=== PATIENT | male | born 1955 | race Caucasian/White ===

== ENCOUNTER 2022-01-28 08:48 | Outpatient (CLI) | payer OTHER, SELFPAY ==
[2022-01-28 21:03] LABS: Albumin* 4.3 g/dL (3.3-5.0); Chloride* 103 mmol/L (96-114); Sodium* 139 mmol/L (135-149)
[2022-01-28 21:04] LABS: Potassium* 4.3 mmol/L (3.6-5.1)
[2022-01-28 21:06] LABS: Alanine Aminotransferase* 25 U/L (4-50); Alkaline Phosphatase* 66 U/L (40-150); Aspartate Amino Transferase* 24 U/L (12-35); Bilirubin Total* 0.7 mg/dL (0.1-1.5); Blood Urea Nitrogen* 20 mg/dL (7-30); Carbon Dioxide* 29 mmol/L (20-32); Cholesterol* 144 mg/dL (90-199); Creatinine* 0.8 mg/dL (0.5-1.5); Glucose* 105 mg/dL (60-115); Total Protein* 6.6 g/dL (6.0-8.3)
[2022-01-28 21:07] LABS: Calcium* 9.3 mg/dL (8.4-10.6); HDL Cholesterol* 37 mg/dL (>=40); LDL Cholesterol Calculated 86 mg/dL (<100); Triglycerides* 107 mg/dL (40-149)
[2022-01-28 21:39] LABS: PSA Screen* 1.93 ng/mL (0.10-4.00)
== END 2022-01-28 08:49 | disposition home or self-care (01) ==
PROVIDERS: PCP Internal Medicine; Visit Provider Internal Medicine
DX: E78.5 Hyperlipidemia, unspecified; I10 Essential (primary) hypertension; L70.9 Acne, unspecified; Z12.5 Encounter for screening for malignant neoplasm of prostate
CPT/HCPCS: 80053; 80061; 84153

== ENCOUNTER 2022-12-28 09:52 | Outpatient (CLI) | payer OTHER, SELFPAY | END 2022-12-28 09:53 | disposition home or self-care (01) | PROVIDERS: PCP Internal Medicine; Visit Provider Internal Medicine | DX: Z12.5 Encounter for screening for malignant neoplasm of prostate (principal) | CPT/HCPCS: 84153 ==

== ENCOUNTER 2023-05-27 07:40 | Outpatient (CLI) | payer OTHER, SELFPAY | END 2023-05-27 07:41 | disposition home or self-care (01) | LOC: NFLDREF 05-28 11:35 | PROVIDERS: PCP Internal Medicine; Referring Provider Internal Medicine; Visit Provider Internal Medicine | DX: E78.5 Hyperlipidemia, unspecified (principal); I10 Essential (primary) hypertension | CPT/HCPCS: 80053; 80061 ==

== ENCOUNTER 2023-06-14 09:32 | Outpatient (CLI) | payer OTHER, SELFPAY ==
--- NOTE | 2023-06-14 10:57 | W.ANESCHARGE ---
Anesthesia Charges Start Date/Time Anesthesia Start Date: 06/14/23 Anesthesia Start Time: 10:31 Stop Date/Time Anesthesia Stop Date: 06/14/23 Anesthesia Stop Time: 10:53
--- NOTE | 2023-06-14 11:00 | W.ANESCHARGE ---
Anesthesia Charges Start Date/Time Anesthesia Start Date: 06/14/23 Anesthesia Start Time: 10:31 Stop Date/Time Anesthesia Stop Date: 06/14/23 Anesthesia Stop Time: 10:53
== END 2023-06-14 09:33 | disposition home or self-care (01) ==
LOC: OP CLINIC 09:33
PROVIDERS: PCP Internal Medicine; Visit Provider Internal Medicine
DX: Z12.11 Encounter for screening for malignant neoplasm of colon (principal); K57.30 Diverticulosis of large intestine without perforation or abscess without bleeding
CPT/HCPCS: 00811; 00812; 45378

== ENCOUNTER 2023-10-07 10:11 | Emergency (ER) | payer OTHER, SELFPAY ==
[2023-10-07 10:14] VITALS: BP 123/67; PULSE 65; RESP 16; TEMP 37.1; O2SAT 97; BMI 24.7
--- NOTE | 2023-10-07 10:47 | XR_ITS ---
Patient: CONCEPCION RIVAS Facility:?[facility] Patient ID:?[id number] Site Patient ID:?[id number]. Site :?[id number] Study:?XRay-Chest 2 VIEWS-10/07/2023 10:57:23 AM Ordering Physician:ADONIS Final Report: Indication: Cough x6 weeks Comparison: None available. Technique: PA and lateral views of the chest Findings: There is hyperinflation and mild chronic interstitial change without evidence of dense consolidation, effusion or pneumothorax. The cardiomediastinal silhouette is within normal limits. The bony thorax is grossly intact. Impression: Mild chronic interstitial changes without evidence of dense consolidation. Dictated by Judd Domínguez MD @ 10/07/2023 11:34:26 AM Signed by:?Judd Domínguez MD @10/07/2023 11:34:26 AM (Electronic Signature)
--- NOTE | 2023-10-07 11:09 | ED_ITS ---
HPI - General Adult General Date Seen: 10/07/23 Chief complaint: Cough Stated complaint: Upper chest congestion, cough Time Seen by Provider: 10/07/23 10:32 Source: patient and RN notes reviewed Mode of arrival: ambulatory Limitations: no limitations History of Present Illness HPI narrative: Patient is a 67-year-old male who presents for evaluation of cough which has been present for about 6 weeks. He says the cough kind of gradually crept up on him, was not associated with any other cold or flu symptoms. He has not had a fever, denies night sweats, unexpected weight loss, chest pain, difficulty breathing. He says the cough is worse at night when his upper chest feels very congested and he feels like he can not get the coughing under control. He denies seasonal allergies. He does not smoke, is retired, no specific exposure to any respiratory irritants. No history of asthma or COPD. No lower extremity swelling or pain. Related Data Home Medications Medication Instructions Recorded Confirmed aspirin 81 mg chewable tablet 1 tab PO DAILY 01/28/22 06/01/23 coenzyme Q10 75 mg capsule (Ultra 75 mg PO QDAY 01/28/22 06/01/23 CoQ10) losartan 25 mg tablet 25 mg PO BID 01/28/22 06/01/23 sjdkypdwuvqy-bvt-bqiol acid-vit 1 tab PO QDAY 01/28/22 06/01/23 K-lycop 400 mcg-20 mcg-370 mcg tablet (Men's 50 Plus Daily Formula) omega-3 fatty acids 1,000 mg 1,000 mg PO QDAY 01/28/22 06/01/23 capsule ([place]-3) vitamin K2 100 mcg capsule 100 mcg PO QDAY 01/28/22 06/01/23 Previous Rx's Medication Instructions Recorded minocycline 100 mg capsule 100 mg PO Q12H #30 caps 01/28/22 sildenafil 50 mg tablet (Viagra) 50 mg PO QDAY PRN sexual activity 05/13/22 #9 tabs peg 3350-electrolytes 236 240 ml PO ONCE #4,000 mL 06/02/23 gram-22.74 gram-6.74 gram-5.86 gram solution (Golytely) simvastatin 40 mg tablet 40 mg PO QDAY #90 tabs 08/06/23 Allergies Allergy/AdvReac Type Severity Reaction Status Date / Time No Known Drug Allergies Allergy Verified 06/01/23 08:58 Review of Systems Status of ROS: Reports: 10 or more systems reviewed and unremarkable except as noted in History and below PFSH PFS Medical History Healthcare maintenance ?Z00.00 - Encounter for general adult medical examination without abnormal findings (ICD-10) Erectile dysfunction ?N52.9 - Male erectile dysfunction, unspecified (ICD-10) Acne ?L70.9 - Acne, unspecified (ICD-10) History of coronary artery disease ?Z86.79 - Personal history of other diseases of the circulatory system (ICD- 10) Surgical History History of sinus surgery ?Z98.890 - Other specified postprocedural states (ICD-10) History of open reduction and internal fixation (ORIF) procedure ?Z98.890 - Other specified postprocedural states (ICD-10) History of hand surgery ?Z98.890 - Other specified postprocedural states (ICD-10) Family History Father Coronary artery disease Mother Coronary artery disease Brother Coronary artery disease Social History What is your current living situation?: I presently have a place to live Problems where you live: no known problems In the past 12 months, utilities in danger of being shut off: no In past 12 months, lack of transportation kept you from medical appts, meetings, work, or getting things needed for daily living: no In the past 12 mos, have been you worried that your food would run out before you had money to buy more?: never true In the past 12 mos, the food you bought just didn't last and you didn't have money to buy more?: never true Smoking Status: Former smoker How often do you have a drink containing alcohol: never AUDIT-C Alcohol total score: 0 Non-prescribed substance use: denies use How often does anyone, including family, friends and others, physically hurt you : never How often does anyone, including family, friends and others, insult or talk down to you: never How often does anyone, including family, friends and others, threaten you with harm: never How often does anyone, including family, friends and others, scream or curse at you: never Little interest or pleasure in doing things: not at all Feeling down, depressed, or hopeless: not at all Exam Narrative: Exam Narrative: Vital signs as noted above. In general, an alert, well-appearing patient. Breathing easily. Head: Normocephalic, atraumatic. Eyes: Pupils are equal reactive. Extraocular movements are full. Conjunctivae are normal. ENT: Mucous membranes are moist. Throat is normal. Neck: Supple without lymphadenopathy. Heart: Regular rate and rhythm. No murmur or rub. Lungs: Lungs are clear, no increased work of breathing. Cough does sound somewhat bronchospastic. Abdomen: Soft and nontender. No organomegaly. Extremities: Well perfused. No edema. No calf tenderness. Pulses intact. Neurologic: Patient is alert and oriented to person and place. Speech is fluent. Face is symmetric. Moves all extremities equally. Affect: Normal. Skin: Warm and dry. Well perfused. Const: Vital Signs, click to edit/add: Vital Signs - 24 hr 10/07/23 10:14 Temperature 98.8 F Pulse Rate [Pulse Oximeter] 65 Respiratory Rate 16 Blood Pressure [Ri ght Upper Arm] 123/67 Pulse Oximetry 97 Oxygen Delivery Me thod Room Air Documenting provider has reviewed patient's vital signs: yes Course Course ED Course: I did elect to do a chest x-ray given duration of symptoms, to rule out unlikely findings such as pulmonary edema, pleural effusion, mass. By my review the chest x-ray is negative, final radiology read is still pending. Lungs are clear, O2 sats are normal. He says in the past when he has had symptoms like this he has responded well to azithromycin. Discussed the diagnosis of bronchitis and that this is typically viral. Would recommend starting with a trial of prednisone and albuterol. I am giving him a prescription for azithromycin but recommend that he hold off on starting that unless he does not have any response to the above medications. If he does not feel better in the next week regardless of treatment, he should be seen again by primary care. Return any time for acute worsening new symptoms such as shortness of breath, fevers, chest pain. At this time I do not have suspicion of a cardiovascular cause for his symptoms. Vital Signs Vital signs: Initial Vital Signs Temperature 98.8 F 10/07/23 10:14 Temperature Source Temporal Artery Scan 10/07/23 10:14 Pulse Rate 65 10/07/23 10:14 Respiratory Rate 16 10/07/23 10:14 Blood Pressure 123/67 10/07/23 10:14 Blood Pressure Mean 85 10/07/23 10:14 Blood Pressure Position Supine 10/07/23 10:14 Pulse Oximetry 97 10/07/23 10:14 Oxygen Delivery Method Room Air 10/07/23 10:14 Vital Signs Temperature 98.8 F 10/07/23 10:14 Pulse Rate 65 10/07/23 10:14 Respiratory Rate 16 10/07/23 10:14 Blood Pressure 123/67 10/07/23 10:14 Pulse Oximetry 97 10/07/23 10:14 Oxygen Delivery Method Room Air 10/07/23 10:14 Temperature 98.8 F 10/07/23 10:14 Pulse Rate 65 10/07/23 10:14 Respiratory Rate 16 10/07/23 10:14 Blood Pressure 123/67 10/07/23 10:14 Pulse Oximetry 97 10/07/23 10:14 Oxygen Delivery Method Room Air 10/07/23 10:14 Discharge Plan Discharge Clinical Impression: Bronchitis Patient Disposition: Home, Self-Care Condition: Stable Instructions: Acute Bronchitis (ED) Additional Instructions: Medications as prescribed. I would start with the inhaler and steroids 1st, antibiotics are typically not needed for bronchitis as it is caused by viruses, but if you are not improving despite several days of treatment with steroid and inhaler, you can take the azithromycin as prescribed as well. See your primary doctor if symptoms do not resolve over the next week, return to the ER at any time for worsening. Prescriptions: No Action aspirin 81 mg tablet,chewable 1 tab PO DAILY losartan 25 mg tablet 25 mg PO BID Men's 50 Plus Daily Formula 400-20-370 mcg tablet 1 tab PO QDAY Ultra CoQ10 75 mg capsule 75 mg PO QDAY omega-3 fatty acids [[place]-3] 1,000 mg capsule 1,000 mg PO QDAY vitamin K2 100 mcg capsule 100 mcg PO QDAY minocycline 100 mg capsule 100 mg PO Q12H Qty: 30 3RF sildenafil [Viagra] 50 mg tablet 50 mg PO QDAY PRN (Reason: sexual activity) Qty: 9 12RF Rx Instructions: administer 30 minutes to 4 hours before activity peg 3350-electrolytes [Golytely] 236-22.74-6.74 -5.86 gram recon soln 240 ml PO ONCE Qty: 4000 0RF Rx Instructions: until fecal effluent is clear simvastatin 40 mg tablet 40 mg PO QDAY Qty: 90 2RF Follow Up/Referrals: Zion Rubalcava MD [Primary Care Provider] - Stand Alone Forms: [facility] Info Instructions
[2023-10-07 11:11] VITALS: BP 123/67; PULSE 65; RESP 16; TEMP 37.1
== END 2023-10-07 11:13 | disposition home or self-care (01) ==
PROVIDERS: Emergency Provider Emergency Medicine; PCP Internal Medicine
DX: J40 Bronchitis, not specified as acute or chronic (principal)
CPT/HCPCS: 71046; 99283; 99284

== ENCOUNTER 2024-05-22 10:35 | Emergency (ER) | payer OTHER, SELFPAY ==
[2024-05-22 10:57] VITALS: BP 115/70; PULSE 54; RESP 16; TEMP 36.7; O2SAT 96; BMI 24.4
--- NOTE | 2024-05-22 11:48 | CRLHL7_ITS ---
For Patients: As a result of the Century Cures Act, medical imaging exams and procedure reports are released immediately into your electronic medical record. You may view this report before your referring provider. If you have questions, please contact your health care provider. INDICATION: Coughing and congestion. TECHNIQUE: CT chest without contrast. COMPARISON: None. FINDINGS: Lungs and pleura: No suspicious nodules or infiltrates. No pleural effusions, pleural thickening, or pneumothorax. Heart and vasculature: Heart size is normal. Coronary artery calcifications. Mild ectatic ascending aorta measuring 4.0 centimeters. Lymph nodes/mediastinum: Small hiatal hernia. No mediastinal, hilar, or axillary adenopathy. Chest wall: No masses. Upper abdomen: No significant findings. Bones: Unremarkable for age. IMPRESSION: No acute intrathoracic abnormality including pneumonia as questioned. Coronary artery calcifications. Please note that all CT scans at this facility use dose modulation, iterative reconstruction, and/or weight-based dosing when appropriate to reduce radiation dose to as low as reasonably achievable. Dictated by Tien Sher MD @ 05/22/2024 12:24:54 PM (Electronically Signed)
--- NOTE | 2024-05-22 11:48 | ED.GENADULT ---
HPI - General Adult General Date Seen: 05/22/24 Chief complaint: Cough Stated complaint: chest cold over 2 wks, cough up dark mucous Time Seen by Provider: 05/22/24 10:54 Source: patient Mode of arrival: ambulatory Limitations: no limitations History of Present Illness HPI narrative: Patient is a 59 you move removed with a history of hypertension presenting to the emergency department for a cough and congestion going on for about 3 weeks. States the symptoms started with a sore throat any thinking male had intermittent fevers set the start. Sore throat and fevers have since improved but he continues to have a dry cough that occasionally produces dark green mucus. He did a home COVID test couple days after symptoms started that was negative. Has not been tested for flu. Does state he had COVID back in August and since then he has been having issues with an intermittent cough. Does state it has been much worse recently. Has a very slight lightheadedness when he leans forward that is new for him but denies any dizziness. States he is having very mild occasional shortness of breath with ambulation. Currently states he just feeling congested in his midsternal region. Denies abdominal pain, nausea/vomiting, weakness, numbness, headaches, vision changes. Not aware of any sick contacts. No other concerns noted at this time. Related Data Home Medications ?Medication ?Instructions ?Recorded ?Confirmed aspirin 81 mg chewable tablet 1 tab PO DAILY 01/28/22 06/01/23 coenzyme Q10 75 mg capsule (Ultra 75 mg PO QDAY 01/28/22 06/01/23 CoQ10) losartan 25 mg tablet 25 mg PO BID 01/28/22 06/01/23 wcczphfjsvma-kjx-pamtn acid-vit 1 tab PO QDAY 01/28/22 06/01/23 K-lycop 400 mcg-20 mcg-370 mcg tablet (Men's 50 Plus Daily Formula) omega-3 fatty acids 1,000 mg 1,000 mg PO QDAY 01/28/22 06/01/23 capsule ([place]-3) vitamin K2 100 mcg capsule 100 mcg PO QDAY 01/28/22 06/01/23 Previous Rx's ?Medication ?Instructions ?Recorded minocycline 100 mg capsule 100 mg PO Q12H #30 caps 01/28/22 sildenafil 50 mg tablet (Viagra) 50 mg PO QDAY PRN sexual activity 05/13/22 #9 tabs peg 3350-electrolytes 236 240 ml PO ONCE #4,000 mL 06/02/23 gram-22.74 gram-6.74 gram-5.86 gram solution (Golytely) simvastatin 40 mg tablet 40 mg PO QDAY #90 tabs 04/25/24 azithromycin 250 mg tablet See Rx Instructions PO .COMPLEX #6 05/22/24 (Zithromax) tabs Allergies Allergy/AdvReac Type Severity Reaction Status Date / Time No Known Drug Allergies Allergy Verified 05/22/24 11:00 Review of Systems Status of ROS: Reports: 10 or more systems reviewed and unremarkable except as noted in History and below PFSH [facility] Medical History Healthcare maintenance ?Z00.00 - Encounter for general adult medical examination without abnormal findings (ICD-10) Erectile dysfunction ?N52.9 - Male erectile dysfunction, unspecified (ICD-10) Acne ?L70.9 - Acne, unspecified (ICD-10) History of coronary artery disease ?Z86.79 - Personal history of other diseases of the circulatory system (ICD-10) Surgical History History of sinus surgery ?Z98.890 - Other specified postprocedural states (ICD-10) History of open reduction and internal fixation (ORIF) procedure ?Z98.890 - Other specified postprocedural states (ICD-10) History of hand surgery ?Z98.890 - Other specified postprocedural states (ICD-10) Family History Father Coronary artery disease Mother Coronary artery disease Brother Coronary artery disease Social History What is your current living situation?: I presently have a place to live Problems where you live: no known problems In the past 12 months, utilities in danger of being shut off: no In past 12 months, lack of transportation kept you from medical appts, meetings, work, or getting things needed for daily living: no In the past 12 mos, have been you worried that your food would run out before you had money to buy more?: never true In the past 12 mos, the food you bought just didn't last and you didn't have money to buy more?: never true Smoking Status: Never smoker How often do you have a drink containing alcohol: never AUDIT-C Alcohol total score: 0 Non-prescribed substance use: denies use How often does anyone, including family, friends and others, physically hurt you: never How often does anyone, including family, friends and others, insult or talk down to you: never How often does anyone, including family, friends and others, threaten you with harm: never How often does anyone, including family, friends and others, scream or curse at you: never Little interest or pleasure in doing things: not at all Feeling down, depressed, or hopeless: not at all Exam Narrative: Exam Narrative: Const: Well-nourished, Well-developed, in no distress Eyes: PERRL, no conjunctival injection, and symmetrical lids HENT: Atraumatic external nose and ears. Moist mucous membranes. Neck: Symmetric, trachea midline, No thyromegaly. CVS: RRR, No murmurs or gallops. Peripheral pulses 2+ and equal in all extremities RESP: Unlabored respiratory effort. Clear to auscultation bilaterally. GI: Nontender/Nondistended, No rebound or guarding. MSK:Extremities w/o deformity, Normal Active ROM Skin: Warm, Dry. No rashes or lesions. Neuro: Normal Muscle tone, No focal neurological deficits. Psych: Awake, Alert, & Oriented x3. Appropriate mood and affect. Const: Vital Signs, click to edit/add: Vital Signs - 24 hr 05/22/24 10:57 Temperature 98.1 F Pulse Rate [Left P ulse Oximeter] 54 L Respiratory Rate 16 Blood Pressure [Ri ght Upper Arm] 115/70 Pulse Oximetry 96 Oxygen Delivery Me thod Room Air Course Vital Signs Vital signs: Initial Vital Signs Temperature 98.1 F 05/22/24 10:57 Temperature Source Temporal Artery Scan 05/22/24 10:57 Pulse Rate 54 L 05/22/24 10:57 Respiratory Rate 16 05/22/24 10:57 Respiratory Effort Normal, Spontaneous, Non-Labored 05/22/24 10:57 Respiratory Depth Normal 05/22/24 10:57 Respiratory Pattern Normal 05/22/24 10:57 Blood Pressure 115/70 05/22/24 10:57 Blood Pressure Mean 85 05/22/24 10:57 Blood Pressure Position Sitting 05/22/24 10:57 Pulse Oximetry 96 05/22/24 10:57 Oxygen Delivery Method Room Air 05/22/24 10:57 Vital Signs Temperature 98.1 F 05/22/24 10:57 Pulse Rate 54 L 05/22/24 10:57 Respiratory Rate 16 05/22/24 10:57 Blood Pressure 115/70 05/22/24 10:57 Pulse Oximetry 96 05/22/24 10:57 Oxygen Delivery Method Room Air 05/22/24 10:57 Temperature 98.1 F 05/22/24 10:57 Pulse Rate 54 L 05/22/24 10:57 Respiratory Rate 16 05/22/24 10:57 Blood Pressure 115/70 05/22/24 10:57 Pulse Oximetry 96 05/22/24 10:57 Oxygen Delivery Method Room Air 05/22/24 10:57 Medical Decision Making MDM Narrative Medical decision making narrative: Patient is a 68-year-old male presenting for cough. Patient is a nonsmoker and COPD seems unlikely to be the cause of his shortness of breath. Also has no history of asthma. Lungs are clear on exam. She is doing could be related to an ACS but seems unlikely. Will disorder troponin EKG. Place have a very mild shortness of breath with ambulation affect that this is or intermittent and he has no history of blood clots weeks PE unlikely. Symptoms all seem most consistent with a viral or bacterial etiology. Will do a CT scan for better evaluation. Also order a BMP, CBC. Lab work shows no concerning abnormalities. EKG and troponin showed no concerning findings. Repeat troponin is necessary symptoms have been going on for several weeks. He does have sinus bradycardia but is asymptomatic from it. The lightheadedness is more associated with forward bending probably from his coughing. I do not think further evaluation is necessary this. CT scan shows no acute abnormalities. Patient is already aware of the coronary artery calcifications He may have an acute bronchitis causing his symptoms. Will treat with a Z-Davon considering his age. He is agreeable to this plan. Will call back with results of COVID/flu swab. Lab Data Labs: Lab Results 05/22/24 05/22/24 05/22/24 Range/Units 11:48 11:54 12:40 WBC 6.88 (4.50-11.00) K/uL RBC 4.83 (4.30-5.90) m/uL Hgb 15.1 (13.5-17.5) gm/dL Hct 44.4 (37.0-53.0) % MCV 92 (80-100) fL MCH 31 (26-34) pg MCHC 34 (32-36) gm/dL RDW Coeff of Luigi 12.2 (11.5-15.5) % Plt Count 222 (140-440) K/uL Neut % (Auto) 64.7 (42.0-72.0) % Lymph % (Auto) 21.2 (20-44) % [place] % (Auto) 10.8 (0.0-11.0) % Eos % (Auto) 2.6 (0.0-7.0) % Baso % (Auto) 0.4 (0.0-3.0) % Neut # (Auto) 4.45 (1.7-7.0) K/uL Lymph # (Auto) 1.46 (0.90-2.90) K/uL [place] # (Auto) 0.70 (0.00-0.90) K/UL Eos # (Auto) 0.18 (0.00-0.50) K/uL Baso # (Auto) 0.03 (0.00-0.30) K/uL Abs Immat Gran (auto) 0.02 (0.00-0.30) K/uL Imm/Tot Granulo (auto) 0.3 % Sodium 136 (135-149) mmol/L Potassium 3.9 (3.6-5.1) mmol/L Chloride 101 (96-114) mmol/L Carbon Dioxide 26 (20-32) mmol/L Anion Gap 9 (7-15) mEq/L BUN 21 (7-30) mg/dL Creatinine 0.9 (0.5-1.5) mg/dL Estimated Creat Clear 69.72 Estimated GFR 92 ml/min Glucose 97 (60-115) mg/dL Calcium 9.3 (8.4-10.6) mg/dL SARS-CoV-2 (PCR) Negative SARS-CoV-2 (Negative) Influenza Type A (PCR) Negative PCR FLU A (Negative) Influenza Type B (PCR) Negative PCR FLU B (Negative) RSV (PCR) Negative PCR RSV (Negative) POC Troponin I 0.00 L (0.01-0.04) ng/ml Imaging Data CT scan - chest: Attestation: I have reviewed the pertinent imaging results. Radiologist's impression: No acute intrathoracic abnormality including pneumonia as questioned. Coronary artery calcifications. Please note that all CT scans at this facility use dose modulation, iterative reconstruction, and/or weight-based dosing when appropriate to reduce radiation dose to as low as reasonably achievable. Dictated by Tien Sher MD @ 05/22/2024 12:24:54 PM ECG Data Attestation: I personally reviewed and interpreted this ECG as follows: Prior ECG tracings: not available for review Interpretation: Sinus bradycardia rate 44 beats per minute, normal intervals, normal axis, no ST or T-wave abnormalities. Discharge Plan Discharge Clinical Impression: Bronchitis Patient Disposition: Home, Self-Care Condition: Stable Instructions: Acute Bronchitis (ED) Additional Instructions: Your cough may be related to her previous infection and is now she is having some inflammation the above-mentioned improve on his own. I will also give you a Z-Davon in case appear potentially missing a pneumonia the that does not appear on the CT scan. Return for new or worsening symptoms Prescriptions: New azithromycin [Zithromax] 250 mg tablet See Rx Instructions .ROUTE .COMPLEX Qty: 6 0RF Rx Instructions: For 250 mg dose pack: take 500 mg today (day 1), then 250 mg for 4 days (days 2-5) No Action aspirin 81 mg tablet,chewable 1 tab PO DAILY losartan 25 mg tablet 25 mg PO BID Men's 50 Plus Daily Formula 400-20-370 mcg tablet 1 tab PO QDAY Ultra CoQ10 75 mg capsule 75 mg PO QDAY omega-3 fatty acids [[place]-3] 1,000 mg capsule 1,000 mg PO QDAY vitamin K2 100 mcg capsule 100 mcg PO QDAY minocycline 100 mg capsule 100 mg PO Q12H Qty: 30 3RF sildenafil [Viagra] 50 mg tablet 50 mg PO QDAY PRN (Reason: sexual activity) Qty: 9 12RF Rx Instructions: administer 30 minutes to 4 hours before activity peg 3350-electrolytes [Golytely] 236-22.74-6.74 -5.86 gram recon soln 240 ml PO ONCE Qty: 4000 0RF Rx Instructions: until fecal effluent is clear simvastatin 40 mg tablet 40 mg PO QDAY Qty: 90 0RF Follow Up/Referrals: Zion Rubalcava MD [Primary Care Provider] - Stand Alone Forms: [employer] Info Instructions
[2024-05-22 12:03] LABS: Basophils Absolute Auto 0.03 K/uL (0.00-0.30); Basophils Percent Auto 0.4 % (0.0-3.0); Eosinophils Absolute Auto 0.18 K/uL (0.00-0.50); Eosinophils Percent Auto 2.6 % (0.0-7.0); Hematocrit 44.4 % (37.0-53.0); Hemoglobin* 15.1 gm/dL (13.5-17.5); Immature Granulocytes Abs Auto 0.02 K/uL (0.00-0.30); Immature Granulocytes Pct Auto 0.3 %; Lymphocytes Absolute Auto 1.46 K/uL (0.90-2.90); Lymphocytes Percent Auto 21.2 % (20-44); Mean Corpuscular HGB Conc 34 gm/dL (32-36); Mean Corpuscular Hemoglobin 31 pg (26-34); Mean Corpuscular Volume 92 fL (80-100); Monocytes Percent Auto 10.8 % (0.0-11.0); Neutrophils Absolute Auto 4.45 K/uL (1.7-7.0); Neutrophils Percent Auto 64.7 % (42.0-72.0); Platelet Count* 222 K/uL (140-440); RDW Coefficient of Variation % 12.2 % (11.5-15.5); Red Blood Count 4.83 m/uL (4.30-5.90); White Blood Count* 6.88 K/uL (4.50-11.00)
[2024-05-22 12:04] LABS: Slide Review Reflex No
--- OUTSIDE RECORDS SUMMARY | 2024-05-22 12:10 | XMS_ITS | Clinical Summary ---
Author Organization [facility] Address [place], [place] [address] Care Team Providers Care Inspector Open Die Name Role Phone Rafael Dao MD Unavailable [phone] Zion Rubalcava MD Primary Care Provider Allergies No known active allergies Medications Medication Sig Dispensed Refills Start Date End Date Status simvastatin (ZOCOR) 40 mg tablet Take 1 tablet by mouth once daily. 90 tablet 11 02/28/2013 Active multivitamin (MVI) tablet Take 1 tablet by mouth once daily. Active Garlic 100 mg tab Take 1 tablet by mouth once daily. 0 10/27/2016 Active aspirin (ECOTRIN) 81 mg enteric coated tablet Take 1 tablet by mouth once daily with a meal. 0 10/27/2016 Active krill oil 500 mg cap Take by mouth. 0 11/07/2018 Active Flaxseed Oil oil As directed once daily. 1 Bottle 11/07/2018 Active losartan (COZAAR) 25 mg tabletIndications:HT N (hypertension) Take 1 Tablet (25 mg) by mouth two times daily. 180 Tablet 03/23/2024 Active Active Problems No known active problems Encounters Date Type Department Care Team Description 04/28/2024 10:29 AM CDT - 04/28/2024 11:59 PM CDT Hospital Encounter [facility] [address] [place] [address] Rafael Dao MD Aneurysm of aorta in diseases classified elsewhere (HC) 04/28/2024 Travel 04/25/2024 Telephone [facility] [address] [place] [address] Peyton Bailey R.T. (ARRT) 04/04/2024 Telephone [facility] [address] [place] [address] Rafael Dao MD Appointment 03/23/2024 Refill [facility] [address] [place] [address] Rafael Dao MD Refill Request (Losartan) from Last 3 Months Family History Relation Name Status Comments Father Mother Social History Tobacco Use Types Packs/Day Years Used Date Smoking Tobacco: Former Cigarettes Smokeless Tobacco: Never Comments:socially Alcohol Use Standard Drinks/Week Comments Not Currently 0 (1 standard drink = 0.6 oz pur e alcohol) occ Social Connections Answer Date Recorded Frequency of Communication with Friends and Fami ly Not on file 07/19/2021 Financial Resource Strain Answer Date R ecorded Difficulty of Paying Living Expenses Not on file 07/19/2021 Difficulty of Paying Living Expenses Not on file 07/19/2021 Sex and Gender Information Value Date Recorded Sex Assigned at Not on file Gender Identity Not on file Sexual Orientation Not on file Obstetrics History Last Filed Vital Signs Vital Sign Reading Time Taken Comments Blood Pressure 122/74 02/11/2023 11:48 AM CDT Pulse 48 02/11/2023 11:48 AM CDT Temperature - - Respiratory Rate 16 02/11/2023 11:48 AM CDT Oxygen Saturation 98% 02/11/2023 11:48 AM CDT Inhaled Oxygen Concentration - - Weight 76.7 kg (169 lb) 02/11/2023 11:48 AM CDT Height 175.3 cm (5' 9) 02/11/2023 11:48 AM CDT Body Mass Index 24.96 02/11/2023 11:48 AM CDT Plan of Treatment Upcoming Encounters Date Type Department Care Team (Late st Contact Info) Description 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 Visit [facility] [address] [place] [address] [place] [address] [place] [address] Health Maintenance Due Date Last Done Comments Tdap 1965 Depression screening for age 12+ 1966 Hepatitis C screening for ag e 18-79 1972 Tetanus booster 1974 Colonoscopy through age 75 11/01/1999 Zoster (shingles) series for age 50+ (1 of 2) 2004 Medicare Wellness for age 65+ 11/01/2019 Pneumococcal series for age 65+ (1 of 1 - PCV) 11/01/2019 BMI (ht and wt on same day) for age 18+ 02/12/2024 02/11/2023, 12/04/2021, 10/24/2020, Additional history exists COVID-19 vaccine series ( season) 2024 02/10/2022, 04/25/2021, 10/12/2020, Additional history exists Influenza for age 65+ 03/19/2024 Lipids for age 45-75 12/04/2026 12/04/2021, 10/25/19 21 Procedures Procedure Name Priority Date/Time Associated Diagnosis Comments MR ANGIO CHEST WO CONTRAST Routine 04/28/2024 11:11 AM CDT Aneurysm of aorta in diseases classified elsewhere (HC) LIPID PANEL Routine 12/04/2021 12:20 PM CDT Enlarged aorta (HC) Coronary artery disease involving enterprise coronary artery without angina pectoris, unspecified whether enterprise or transplanted heart from Last 3 Months or Most Recently Relevant to Health Maintenance Results * MR ANGIO CHEST WO CONTRAST (04/28/2024 11:11 AM CDT) Anatomical Region Laterality Modality CHEST, THORAX, Lung, HEART Magne tic Resonance 04/28/2024 10:2 9 AM CDT Narrative 05/01/2024 9:26 PM CDT ?[facility] ? CMR Report ??MRN: ?[id number] ?Name: ?JUSTICE CHISHOLM A ?: ? 1956-Apr-15 ?Scan Date: ? Electronically signed by Miah Lee 21:26:13 VITALS ===== HEIGHT: 69 in ?(175 cm) WEIGHT: 170 lbs ?(77 kgs) BSA: 1.93 m^2 FINAL IMPRESSION ===== Noncontrast MRA -The aortic root is moderately dilated, 4.7 x 4.7 x 4.6 ??cm (cusp-cusp). The area to height ratio is 9.1 cm2/m. No change since the prior MRA from 04/27/2023. -The ascending aorta is borderline dilated 4.1 x 4.0 cm. The area to height ratio is 7.2 cm2/m. No change since the prior MRA from 04/27/2023. -No coarctation or dissection. -Trileaflet aortic valve with trivial regurgitation (4 mL) and no stenosis. -The innominate and left carotid arteries share a common origin. -The ostia of the celiac, superior mesenteric, and renal arteries are widely patent. Aortic Measurements: ?? Sinuses of Valsalva (cusp-cusp): ??4.7 x 4.7 x 4.6 cm; ?? area 16.00 cm2 ?? Sinotubular junction: ??3.7 x 3.7 cm ?? Ascending Aorta (at MPA): ??4.1 x 4.0 cm; ?? area 12.66 ??cm2 ?? Aortic arch: 2.9 x 2.8 cm ?? Descending Aorta (at MPA): ??2.8 x 2.7 cm SCAN INFO ===== GENERAL ----- --- ?SCANNER ?CALL CENTER SUPPORT REPRESENTATIVE: ??SIEMENS ?MODEL: ??Avanto_fit ?SETUP ?REFERRING PHYSICIAN: ??RAFAEL DAO ?ATTENDING PHYSICIAN: ??RAFAEL DAO BILLING ===== Patient Account ?[id number] ICD10 Codes ?I79.0 Report generated by [employer], a product of [employer] Procedure Note Miah Lee MD - 05/01/2024 [facility] CMR Report Name: JUSTICE CHISHOLM : Scan Date: Electronically signed by Miah Lee 21:26:13 VITALS ===== HEIGHT: 69 in (175 cm) WEIGHT: 170 lbs (77 kgs) BSA: 1.93 m^2 FINAL IMPRESSION ===== Noncontrast MRA -The aortic root is moderately dilated, 4.7 x 4.7 x 4.6 cm (cusp-cusp).The area to height ratio is 9.1 cm2/m. No change since the prior MRA from 04/27/2023. -The ascending aorta is borderline dilated 4.1 x 4.0 cm. The area toheight ratio is 7.2 cm2/m. No change since the prior MRA from 04/27/2023. -No coarctation or dissection. -Trileaflet aortic valve with trivial regurgitation (4 mL) and nostenosis. -The innominate and left carotid arteries share a common origin. -The ostia of the celiac, superior mesenteric, and renal arteries arewidely patent. Aortic Measurements: Sinuses of Valsalva (cusp-cusp): 4.7 x 4.7 x 4.6 cm; area 16.00cm2 Sinotubular junction: 3.7 x 3.7 cm Ascending Aorta (at MPA): 4.1 x 4.0 cm; area 12.66 cm2 Aortic arch: 2.9 x 2.8 cm Descending Aorta (at MPA): 2.8 x 2.7 cm SCAN INFO ===== GENERAL ----- --- SCANNER CALL CENTER SUPPORT REPRESENTATIVE: SIEMENS MODEL: Avanto_fit SETUP REFERRING PHYSICIAN: RAFAEL DAO ATTENDING PHYSICIAN: RAFAEL DAO BILLING ===== Patient Account [id number] ICD10 Codes I79.0 Report generated by [employer], a product of [employer] Rafael Dao MD MR * (ABNORMAL) LIPID PANEL (12/04/2021 12:20 PM CDT) [facility] CHOLESTEROL,TOTAL 133 100 - 199 mg/dL 12/04/2021 8:32 PM CDT [facility] TRIGLYCERIDES 114 <150 mg/dL 12/04/2021 8:32 PM CDT [facility] HDL CHOLESTEROL 40(L) >40 mg/dL 8:32 PM CDT [facility] NON-HDL CHOLESTEROL 93 <145 mg/dl 12/04/2021 8:32 PM CDT [facility] CHOL/HDL RATIO 3.33 <4.50 12/04/2021 8:32 PM CDT [facility] LDL CHOLESTEROL 70 <=130 mg/dL 12/04/2021 8:32 PM CDT [facility] VLDL CHOLESTEROL 23 <=30 mg/dL 12/04/2021 8:32 PM CDT [facility] PROVIDER ORDERED STATUS RANDOM 12/04/2021 8:32 PM CDT [facility] Blood BLOOD SPECIMEN / Unknown Venipuncture / Unknown 12/04/2021 12:20 PM CDT 12/04/2021 12:25 PM CDT Rafael Dao MD [facility] [address] [place] [address], from Last 3 Months or Most Recently Relevant to Health Maintenance Care Teams Inspector Open Die Relationship Specialty Start Date End Date Zion Rubalcava MD [address] [place] [address] PCP - General Internal Medicine 10/10/21 Rafael Dao MD [address] [place] [address] Consulting Physician Cardiovascular Disease 10/27/16
[2024-05-22 12:15] LABS: Chloride* 101 mmol/L (96-114); Potassium* 3.9 mmol/L (3.6-5.1); Sodium* 136 mmol/L (135-149)
[2024-05-22 12:18] LABS: Anion Gap 9 mEq/L (7-15); Carbon Dioxide* 26 mmol/L (20-32); Creatinine* 0.9 mg/dL (0.5-1.5); Est. Creatinine Clearance* 69.72; Estimated Glomerular Filt Rate 92 ml/min
[2024-05-22 12:19] LABS: Blood Urea Nitrogen* 21 mg/dL (7-30); Calcium* 9.3 mg/dL (8.4-10.6); Glucose* 97 mg/dL (60-115)
[2024-05-22 13:24] LABS: PCR FLU A Negative PCR FLU A (Negative); PCR FLU B Negative PCR FLU B (Negative); PCR RSV Negative PCR RSV (Negative); SARS PCR* Negative SARS-CoV-2 (Negative)
== END 2024-05-22 12:40 | disposition home or self-care (01) ==
PROVIDERS: Emergency Provider Student in an Organized Health Care Education/Training Program; PCP Internal Medicine
DX: J40 Bronchitis, not specified as acute or chronic (principal)
CPT/HCPCS: 36415; 71250; 80048; 84484; 85025; 87631; 93005; 99283; 99284; 99285

== ENCOUNTER 2024-07-24 08:00 | Outpatient (CLI) | payer OTHER, SELFPAY | END 2024-07-24 08:01 | disposition home or self-care (01) | LOC: NFLDREF 07-25 02:35 | PROVIDERS: PCP Internal Medicine; Referring Provider Internal Medicine; Visit Provider Internal Medicine | DX: E78.5 Hyperlipidemia, unspecified (principal); I10 Essential (primary) hypertension; Z12.5 Encounter for screening for malignant neoplasm of prostate | CPT/HCPCS: 80053; 80061; G0103 ==

== ENCOUNTER 2025-02-07 10:17 | Emergency (ER) | payer OTHER, SELFPAY ==
--- OUTSIDE RECORDS SUMMARY | 2025-02-07 10:20 | XMS_ITS | Clinical Summary ---
Author Organization [facility] Address [address] [place] [id number] Care Team Providers Care Outside Machinist Helper Name Role Phone Rafael Dao MD Unavailable Zion Rubalcava MD Primary Care Provider Allergies No known active allergies Medications simvastatin (ZOCOR) 40 mg tablet Take 1 tablet by mouth once daily. 90 tablet 11 03/16/2013 2:42 PM CDT 02/28/2013 Active multivitamin (MVI) tablet Take 1 tablet by mouth once daily. Active Garlic 100 mg tab Take 1 tablet by mouth once daily. 0 10/27/2016 Active aspirin (ECOTRIN) 81 mg enteric coated tablet Take 1 tablet by mouth once daily with a meal. 0 10/27/2016 Active losartan (COZAAR) 25 mg tabletIndication s:HTN (hypertension) Take 1 Tablet (25 mg) by mouth two times daily. 180 Tablet 3 07/17/2024 Active Active Problems No known active problems Family History Medical History Relation Name Comments Heart attack Father Hyperlipidemia Father Hypertension Father Heart attack Mother Hyperlipidemia Mother Hypertension Mother Relation Name Status Comments Father Mother Social History Tobacco Use Types Packs/Day Years Used Date Smoking Tobacco: Former Cigarettes Smokeless Tobacco: Never Comments:socially Alcohol Use Standard Drinks/Week Comments Not Currently 0 (1 standard drink = 0.6 oz pur e alcohol) Stopped drinking overall Financial Resource Strain Answer Date R ecorded Difficulty of Paying Living Expenses Not on file 07/19/2021 Difficulty of Paying Living Expenses Not on file 07/19/2021 Sex and Gender Information Value Date Recorded Sex Assigned at Not on file Legal Sex 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 Gender Identity Not on file Sexual Orientation Not on file Obstetrics History Last Filed Vital Signs Vital Sign Reading Time Taken Comments Blood Pressure 122/72 07/17/2024 3:45 PM HOUSE ADMIN Pulse 57 07/17/2024 3:45 PM HOUSE ADMIN Temperature - - Respiratory Rate 16 07/17/2024 3:45 PM HOUSE ADMIN Oxygen Saturation 99% 07/17/2024 3:45 PM HOUSE ADMIN Inhaled Oxygen Concentration - - Weight 79.8 kg (176 lb) 07/17/2024 3:45 PM HOUSE ADMIN Height 175.3 cm (5' 9) 07/17/2024 3:45 PM HOUSE ADMIN Body Mass Index 25.99 07/17/2024 3:45 PM HOUSE ADMIN Plan of Treatment Health Maintenance Due Date Last Done Comments Tetanus booster 1965 Depression screening for age 12+ 1966 Hepatitis C screening for age 18-79 1972 Pneumococcal series for age 50+ (1 of 2 - PCV) 1973 Colonoscopy through age 75 11/01/1999 Zoster (shingles) series for age 50+ (1 of 2) 2004 RSV vaccine for adults or (1 - Risk 60-74 years 1-dose series) 2014 Medicare Wellness for age 65+ 11/01/2019 COVID-19 vaccine series ( season) 2024 06/01/2023, 02/10/2022, 04/25/2021, Additional history exists Influenza Vaccine (#1) 2025 BMI (ht and wt on same day) for age 18+ 07/17/2025 07/17/2024, 02/11/2023, 12/04/2021, Additional history exists Lipids for age 45-75 12/04/2026 12/04/2021, 10/25/19 21 AAA screening age 65-74 Completed 04/27/2023 Hepatitis B series for 19+ Aged Out N o longer eligible based on patient's age to complete this topic Procedures Procedure Name Priority Date/Time Associated Diagnosis Comments US ABD AORTA SCREENING Routine 04/27/2023 1:21 PM CDT Encounter for screening for abdominal aortic aneurysm (AAA) in patient 50 years of age or older without other risk factors for AAA LIPID PANEL Routine 12/04/2021 12:20 PM CDT Enlarged aorta Coronary artery disease involving k[place] coronary artery without angina pectoris, unspecified whether [place] or transplanted heart from Last 3 Months or Most Recently Relevant to Health Maintenance Results * US ABD AORTA SCREENING (04/27/2023 1:21 PM CDT) Anatomical Region Laterality Modality Abdomen, AORTA Ultrasound 04/27/2023 12:5 4 PM CDT Narrative 04/27/2023 1:44 PM CDT VASCULAR ULTRASOUND REPORT JUSTICE CHISHOLM : 1955 Study Date: 04/27/2023 12:54:53 PM Age: 67 years Tech: QUENTIN Gender: M Referring MD: RAFAEL DAO [facility] Study performed: Aorta Indication for study: AAA screening. Study Quality: Good TECHNIQUE: The abdominal aorta and iliac arteries were examined with duplex ultrasound, color-flow and spectral Doppler. Bypass grafts and/or stents if present are evaluated per exam protocol. Vessel size, peak systolic velocity (PSV) and velocity ratios if applicable, were obtained and documented at sites per exam protocol. IMPRESSION: 1. No evidence of abdominal aortic aneurysm. 2. No common iliac artery stenosis or aneurysm bilaterally. COMPARISON: No prior study available for comparison. FINDINGS: There is no evidence of abdominal aortic aneurysm. No common iliac artery stenosis or aneurysm bilaterally. MEASUREMENTS: + +--------+-------+ +---------+ TRV (cm) AP (cm) PSV (cm/s) Phasicity + +--------+-------+ +---------+ Suprarenal aorta 2.20 2.20 90 + +--------+-------+ +---------+ Juxtarenal aorta 2.20 2.20 73 + +--------+-------+ +---------+ Infrarenal aorta 1.80 1.90 66 + +--------+-------+ +---------+ Right common iliac 1.20 1.30 96 + +--------+-------+ +---------+ Left common iliac 1.30 1.20 72 + +--------+-------+ +---------+ ALANA Cuellar. Electronically signed on 04/27/2023 1:44:39 PM This study was performed and interpreted by a service accredited by the Intersocietal Accreditation Commission (IAC/Vascular), www.intersocietal.org/vascular Report generated by [employer]. Final Procedure Note Elsy Harper MBBS - 04/27/2023 VASCULAR ULTRASOUND REPORT JUSTICE CHISHOLM : 1955 Study Date: 04/27/2023 12:54:53 PM Age: 67 years Tech: QUENTIN Gender: M Referring MD: RAFAEL DAO Site: [facility] Study performed: Aorta Indication for study: AAA screening. Study Quality: Good TECHNIQUE: The abdominal aorta and iliac arteries were examined with duplexultrasound, color-flow and spectral Doppler. Bypass grafts and/or stentsif present are evaluated per exam protocol. Vessel size, peak systolicvelocity (PSV) and velocity ratios if applicable, were obtained anddocumented at sites per exam protocol. IMPRESSION: 1. No evidence of abdominal aortic aneurysm. 2. No common iliac artery stenosis or aneurysm bilaterally. COMPARISON: No prior study available for comparison. FINDINGS: There is no evidence of abdominal aortic aneurysm. No common iliac arterystenosis or aneurysm bilaterally. MEASUREMENTS: + +--------+-------+ +---------+ TRV (cm) AP (cm) PSV (cm/s) Phasicity + +--------+-------+ +---------+ Suprarenal aorta 2.20 2.20 90 + +--------+-------+ +---------+ Juxtarenal aorta 2.20 2.20 73 + +--------+-------+ +---------+ Infrarenal aorta 1.80 1.90 66 + +--------+-------+ +---------+ Right common iliac 1.20 1.30 96 + +--------+-------+ +---------+ Left common iliac 1.30 1.20 72 + +--------+-------+ +---------+ ALANA Cuellar. Electronically signed on 04/27/2023 1:44:39 PM This study was performed and interpreted by a service accredited by theIntersocietal Accreditation Commission (IAC/Vascular),[email or web address]/vascular Report generated by [employer]. Final Rafael Dao MD Final Result * (ABNORMAL) LIPID PANEL (12/04/2021 12:20 PM CDT) Pathologist [facility] CHOLESTEROL,TOTAL 133 100 - 199 mg/dL 12/04/2021 8:32 PM CDT [facility] TRIGLYCERIDES 114 <150 mg/dL 12/04/2021 8:32 PM CDT [facility] HDL CHOLESTEROL 40(L) >40 mg/dL 8:32 PM CDT [facility] NON-HDL CHOLESTEROL 93 <145 mg/dl 12/04/2021 8:32 PM CDT [facility] CHOL/HDL RATIO 3.33 <4.50 12/04/2021 8:32 PM CDT [facility] LDL CHOLESTEROL 70 <=130 mg/dL 12/04/2021 8:32 PM CDT [facility] VLDL CHOLESTEROL 23 <=30 mg/dL 12/04/2021 8:32 PM CDT [facility] PROVIDER ORDERED STATUS RANDOM 12/04/2021 8:32 PM CDT [facility] Blood BLOOD SPECIMEN / Unknown Venipuncture / Unknown 12/04/2021 12:20 PM CDT 12/04/2021 12:25 PM CDT Rafael Dao MD CHEMISTRY Final Result [facility] [address] [place] [address], from Last 3 Months or Most Recently Relevant to Health Maintenance Insurance MEDICARE ADVANTAGE MR MEDICARE PART A HB ONLY Care Teams Outside Machinist Helper Relationship Specialty Start Date End Date Zion Rubalcava MD [address] [place] [address] PCP - General Internal Medicine 10/10/21 Rafael Dao MD [address] [place] [address] Consulting Physician Cardiovascular Disease 10/27/16
[2025-02-07 10:21] VITALS: BP 120/72; PULSE 81; RESP 18; TEMP 36.5; O2SAT 92; BMI 25.4
--- NOTE | 2025-02-07 10:39 | ED_ITS ---
HPI - General Adult General Chief complaint: Cough Stated complaint: Thinks has Bronchitis Time Seen by Provider: 02/07/25 10:21 History of Present Illness HPI narrative: Patient is a 69-year-old male who has no history of emphysema or asthma, but does get occasional bronchitis specially since COVID diagnosis in the past. The patient reports 2 week history of cough congestion chest aching from coughing. No chest pain when he is not coughing. No breathing difficulty. He does not f eel short of breath. He has had no chest pain without movement or cough as mention he has had no shortness of breath. He has had no leg swelling or edema. He took couple a COVID test at home and they were negative. Related Data Home Medications ?Medication ?Instructions ?Recorded ?Confirmed aspirin 81 mg chewable tablet 1 tab PO DAILY 01/28/22 08/01/24 coenzyme Q10 75 mg capsule (Ultra 75 mg PO QDAY 08/01/24 CoQ10) losartan 25 mg tablet 25 mg PO BID 01/28/22 lqxthuwmnwoq-meh-mufsh acid-vit 1 tab PO QDAY 01/28/22 08/01/24 K-lycop 400 mcg-20 mcg-370 mcg tablet (Men's 50 Plus Daily Formula) omega-3 fatty acids 1,000 mg 1,000 mg PO QDAY 01/28/22 08/01/24 capsule (Super [place]-3) vitamin K2 100 mcg capsule 100 mcg PO QDAY 01/28/22 Previous Rx's ?Medication ?Instructions ?Recorded minocycline 100 mg capsule 100 mg PO Q12H #30 caps peg 3350-electrolytes 236 240 ml PO ONCE #4,000 mL gram-22.74 gram-6.74 gram-5.86 gram solution (Golytely) simvastatin 40 mg tablet 40 mg PO QDAY #90 tabs 10/05 tadalafil 20 mg tablet (Cialis) 20 mg PO QDAY PRN sexu al activity 11/09/24 #30 tabs Allergies Allergy/AdvReac Type Severity Reaction Status Date / Time No Known Drug Allergies Allergy Verified 08/01/24 10:04 Review of Systems Status of ROS: Reports: 6 or more systems reviewed and unremarkable except as noted in History and below [facility] Medical History Healthcare maintenance ?Z00.00 - Encounter for general adult medical examination without abnormal findings (ICD-10) Erectile dysfunction ?N52.9 - Male erectile dysfunction, unspecified (ICD-10) Acne ?L70.9 - Acne, unspecified (ICD-10) History of coronary artery disease ?Z86.79 - Personal history of other diseases of the circulatory system (ICD- 10) Surgical History History of sinus surgery ?Z98.890 - Other specified postprocedural states (ICD-10) History of open reduction and internal fixation (ORIF) procedure ?Z98.890 - Other specified postprocedural states (ICD-10) History of hand surgery ?Z98.890 - Other specified postprocedural states (ICD-10) Family History Father Coronary artery disease Mother Coronary artery disease Brother Coronary artery disease Social History What is your current living situation?: I presently have a place to live Problems where you live: no known problems In the past 12 months, utilities in danger of being shut off: no In past 12 months, lack of transportation kept you from medical appts, meetings, work, or getting things needed for daily living: no In the past 12 mos, have been you worried that your food would run out before you had money to buy more?: never true In the past 12 mos, the food you bought just didn't last and you didn't have money to buy more?: never true Smoking Status: Never smoker How often do you have a drink containing alcohol: never AUDIT-C Alcohol total score: 0 Non-prescribed substance use: denies use How often does anyone, including family, friends and others, physically hurt you : never How often does anyone, including family, friends and others, insult or talk down to you: never How often does anyone, including family, friends and others, threaten you with harm: never How often does anyone, including family, friends and others, scream or curse at you: never Exam Narrative: Exam Narrative: Objective: Vital signs as described Alert orient x3 no cyanosis No HEENT abnormalities Lungs are clear no rales or wheezing Heart rhythm regular heart murmur Extremities show no edema. Neurologic is grossly nonfocal he is ambulatory. Const: Vital Signs, click to edit/add: Vital Signs - 24 hr 02/07/25 10:21 Temperature 97.7 F Pulse Rate [Pulse Oximeter] 81 Respiratory Rate 18 Blood Pressure [Ri ght Upper Arm] 120/72 Pulse Oximetry 92 Oxygen Delivery Me thod Room Air Course Vital Signs Vital signs: Initial Vital Signs Temperature 97.7 F 02/07/25 10:21 Temperature Source Temporal Artery Scan 02/07/25 10:21 Pulse Rate 81 02/07/25 10:21 Pulse Rhythm Regular 02/07/25 10:21 Respiratory Rate 18 02/07/25 10:21 Blood Pressure 120/72 02/07/25 10:21 Blood Pressure Mean 88 02/07/25 10:21 Blood Pressure Position Sitting 02/07/25 10:21 Pulse Oximetry 92 02/07/25 10:21 Oxygen Delivery Method Room Air 02/07/25 10:21 Vital Signs Temperature 97.7 F 02/07/25 10:21 Pulse Rate 81 02/07/25 10:21 Respiratory Rate 18 02/07/25 10:21 Blood Pressure 120/72 02/07/25 10:21 Pulse Oximetry 92 02/07/25 10:21 Oxygen Delivery Method Room Air 02/07/25 10:21 Temperature 97.7 F 02/07/25 10:21 Pulse Rate 81 02/07/25 10:21 Respiratory Rate 18 02/07/25 10:21 Blood Pressure 120/72 02/07/25 10:21 Pulse Oximetry 92 02/07/25 10:21 Oxygen Delivery Method Room Air 02/07/25 10:[address] [facility] Narrative Medical decision making narrative: 69-year-old male nonsmoker with a history of occasional bronchitis/she status post COVID, presents with 2 week history of cough congestion. At this point I do not hear any obvious pneumonia symptoms his clinical history is not significant for rigors or other significant findings, but I do think he would benefit from a course of Zithromax Z-Davon as well as prednisone 20 mg b.i.d. x5 days. Recommend rest, fluids, observation, return if problems or concerns or not improving. He was comfortable distal follow up as directed. I do not think at this time there is indications for imaging. He will follow up as indicated. Will also check a triple swab nasal for him to make sure does have COVID/RSV/influenza. Discharge Plan Discharge Clinical Impression: Bronchitis Patient Disposition: Home, Self-Care Condition: Stable Instructions: Acute Bronchitis (ED) Additional Instructions: Information Technology Technician activity, fluids, drink warm liquids , antibiotic and steroid given. Recheck as needed. Activity Level: Light activity Discharge Diet: Regular Prescriptions: No Action aspirin 81 mg tablet,chewable 1 tab PO DAILY losartan 25 mg tablet 25 mg PO BID Men's 50 Plus Daily Formula 400-20-370 mcg tablet 1 tab PO QDAY Ultra CoQ10 75 mg capsule 75 mg PO QDAY omega-3 fatty acids [Super [place]-3] 1,000 mg capsule 1,000 mg PO QDAY vitamin K2 100 mcg capsule 100 mcg PO QDAY minocycline 100 mg capsule 100 mg PO Q12H Qty: 30 3RF peg 3350-electrolytes [Golytely] 236-22.74-6.74 -5.86 gram recon soln 240 ml PO ONCE Qty: 4000 0RF Rx Instructions: until fecal effluent is clear simvastatin 40 mg tablet 40 mg PO QDAY Qty: 90 2RF tadalafil [Cialis] 20 mg tablet 20 mg PO QDAY PRN (Reason: sexual activity) Qty: 30 1RF Rx Instructions: administer approximately 30min before sexual activity; do not use more than 1 dose per 24hrs Follow Up/Referrals: Zion Rubalcava MD [Primary Care Provider, Internal Medicine] Stand Alone Forms: [employer] Info Instructions
[2025-02-07 11:23] LABS: PCR FLU A Negative PCR FLU A (Negative); PCR FLU B Negative PCR FLU B (Negative); PCR RSV Negative PCR RSV (Negative); SARS PCR* Negative SARS-CoV-2 (Negative)
== END 2025-02-07 10:45 | disposition home or self-care (01) ==
LOC: ED 10:42
PROVIDERS: Emergency Provider Family Medicine; PCP Internal Medicine
DX: J40 Bronchitis, not specified as acute or chronic (principal)
CPT/HCPCS: 87631; 99283